=== PATIENT | female | born 1980 | race African-American/Black ===

== ENCOUNTER 2021-01-01 15:13 | Emergency (ER) | payer SELFPAY ==
[~2021-01-01] VITALS: Ht 165.1 cm; Wt 91.0 kg
[2021-01-01 15:14] VITALS: BP 128/88
== END 2021-01-01 17:31 | disposition left against medical advice (07) ==
LOC: ER 15:13
DX: Z76.89 Persons encountering health services in other specified circumstances (principal); Z91.81 History of falling
CPT/HCPCS: 99283